=== PATIENT | male | born 1965 | race Caucasian/White ===

== ENCOUNTER 2019-03-03 09:31 | Emergency (ER) | payer OTHER, SELFPAY ==
[~2019-03-03] VITALS: Ht 157.5 cm; Wt 82.0 kg
--- NOTE | 2019-03-03 09:43 | NUR ---
Pt presents to ED with c/o epistaxis intermittent starting last night. Epistaxis returned after pt blew his nose this morning. ED MD at bedside. No active bleeding observed at this time. No other needs expressed at this time.
[2019-03-03] MEDS ORDERED: PHENYLEPHRINE NASAL 1%, 15ML SPRAY ONE (09:45)
[2019-03-03] MEDS ORDERED: SILVER NITRATE STICK TP ONE ×2 (09:51→10:00)
[2019-03-03] MEDS ORDERED: PHENYLEPHRINE NASAL 1%, 15ML SPRAY NAS ONE (10:00)
[2019-03-03] MEDS ORDERED: LIDOCAINE 2% VISCOUS 15 ML UDC ONE (10:05)
[2019-03-03] MEDS ORDERED: LIDOCAINE 1%-EPI 1:100K, 20ML ONE (10:08)
--- NOTE | 2019-03-03 10:13 | NUR ---
BREAK RN: MEDICATIONS ADMINISTERED BY DR HERNANDEZ. PT PROVIDED WITH GAUZE, ADDITIONAL EMESIS BAG FOR TRASH. PT HOLDING NOSE CLAMP IN PLACE. PT PLACED ON AUTO BP AND PULSE OX MONITOR.
--- NOTE | 2019-03-03 10:27 | NUR ---
REPORT TO ROSIE PILLAI
[2019-03-03] MEDS ORDERED: LIDOCAINE 1%-EPI 1:100K, 20ML INFIL ONE (11:00)
[2019-03-03] MEDS ORDERED: LIDOCAINE 2% VISCOUS 15 ML UDC MM ONE (11:00)
[2019-03-03 11:17] VITALS: BP 117/56
--- NOTE | 2019-03-03 11:44 | NUR ---
Patient/Caregiver given discharge instructions and they have confirmed that they understand the instructions. Patient ambulatory with steady gait.
== END 2019-03-03 11:45 | disposition home or self-care (01) ==
LOC: ED 11:28
DX: R04.0 Epistaxis (principal); I10 Essential (primary) hypertension; E11.9 Type 2 diabetes mellitus without complications
CPT/HCPCS: 30901; 99284

== ENCOUNTER 2019-05-17 07:42 | Outpatient (CLI) | payer OTHER ==
[2019-05-17] MEDS ORDERED: REGADENOSON 0.4 MG/5 ML SYRINGE ONE (12:58)
== END 2019-05-17 23:59 | disposition home or self-care (01) ==
LOC: CFH 07:42
PROVIDERS: ATTEND Internal Medicine Cardiovascular Disease
DX: R01.1 Cardiac murmur, unspecified (principal); R07.89 Other chest pain
CPT/HCPCS: 78452; 93017; A9502; J2785

== ENCOUNTER 2020-05-05 22:49 | Emergency (ER) | payer OTHER ==
[~2020-05-05] VITALS: Ht 157.5 cm; Wt 90.9 kg
[2020-05-05 23:13] VITALS: BP 175/71
[2020-05-06] MEDS ORDERED: MAALOX/HYOSCYAMINE/LIDOCAINE 45 ML BTL ONE (00:39)
[2020-05-06 00:50] LABS: BASOPHILS # (AUTO) 0.04 x10^3/uL (0-0.1); BASOPHILS % (AUTO) 1 % (0-1); EOSINOPHILS # (AUTO) 0.12 x10^3/uL (0-0.4); EOSINOPHILS % (AUTO) 2 % (1-7); LYMPHOCYTES # (AUTO) 3.48 x10^3/uL (1-3.4); LYMPHOCYTES % (AUTO) 43 % (22-44); MD NO; MEAN CORPUSCULAR HEMOGLOBIN 29.3 pg (27.5-34.5); MEAN CORPUSCULAR HGB CONC 33.4 g/dL (33.2-36.2); MEAN CORPUSCULAR VOLUME 87.6 fL (81-97); MEAN PLATELET VOLUME 7.8 fL (7.4-10.4); MONOCYTES # (AUTO) 0.89 x10^3/uL (0.2-0.8); MONOCYTES % (AUTO) 11 % (2-9); NEUTROPHILS # (AUTO) 3.58 x10^3/uL (1.8-6.8); NEUTROPHILS % (AUTO) 44 % (42-75); PLATELET COUNT 180 x10^3/uL (130-400); RED BLOOD COUNT 4.56 x10^6/uL (4.38-5.82); RED CELL DISTRIBUTION WIDTH 14.4 % (9.4-14.8)
[2020-05-06] MEDS ORDERED: MAALOX/HYOSCYAMINE/LIDOCAINE 45 ML BTL PO ONE (01:00)
[2020-05-06 01:03] LABS: ALANINE AMINOTRANSFERASE 42 U/L (12-78); ALBUMIN 3.6 g/dL (3.4-5.0); ANION GAP 4 mmol/L (5-15); CALCIUM 8.9 mg/dL (8.5-10.1); CHLORIDE 110 mmol/L (98-107); CREATININE 1.18 mg/dL (0.7-1.3)
[2020-05-06 01:07] LABS: ALKALINE PHOSPHATASE 85 U/L (45-117); BILIRUBIN,TOTAL 0.4 mg/dL (0.2-1.0); TOTAL PROTEIN 7.3 g/dL (6.4-8.2); TROPONIN I 0.016 ng/mL (0.000-0.045)
--- NOTE | 2020-05-06 01:31 | NUR ---
PATIENT REPORTS SYMPTOMS HAVE IMPROVED
== END 2020-05-06 02:36 | disposition home or self-care (01) ==
LOC: ED 05-06 00:18
DX: K21.0 Gastro-esophageal reflux disease with esophagitis (principal); R07.9 Chest pain, unspecified; J31.0 Chronic rhinitis; R94.31 Abnormal electrocardiogram [ECG] [EKG]; R06.01 Orthopnea; I10 Essential (primary) hypertension
CPT/HCPCS: 36415; 71045; 80053; 83690; 83880; 84484; 85025; 93005; 99285